=== PATIENT | male | born 1950 | race Caucasian/White ===

== ENCOUNTER → 2019-12-18 | Outpatient (CLI) | payer OTHER, BC ==
[~2019-12-18] MED LIST: BACTRIM DS TAB1 EACH PO; FISH OIL 1,4001 EACH PO; LO-DOSE ASPIRIN81 M1 PO; MULTIVITAMINS1 EAC7 PO; NIASPAN 500 MG500 M1 PO; PRINIVIL20 MG PO
== END ==
LOC: SJCVCIMAG 10:24
DX: I25.10 Atherosclerotic heart disease of native coronary artery without angina pectoris (principal); I10 Essential (primary) hypertension; E78.5 Hyperlipidemia, unspecified; Z98.61 Coronary angioplasty status